=== PATIENT | male | born 1970 | race Caucasian/White ===

== ENCOUNTER 2020-07-03 13:59 | Emergency (ER) | payer OTHER, SELFPAY ==
[~2020-07-03] VITALS: Ht 175.3 cm; Wt 86.2 kg
[2020-07-03] MEDS ORDERED: IV NORMAL SALINE 1000 ML BAG IV ONE (14:30)
[2020-07-03 14:48] LABS: BASOPHILS % (AUTO) 0.2 % (0.0-2.0); EOSINOPHILS % (AUTO) 0.1 % (0.0-7.0); HEMATOCRIT 40.8 % (36.7-47.1); HEMOGLOBIN 13.9 g/dL (12.5-16.3); LYMPHOCYTES # (AUTO) 0.7 K/uL (20.0-40.0); LYMPHOCYTES % (AUTO) 12.9 % (20.5-51.5); MEAN CORPUSCULAR HEMOGLOBIN 31.6 uug (23.8-33.4); MEAN CORPUSCULAR HGB CONC 34 g/dL (32.5-36.3); MEAN CORPUSCULAR VOLUME 92.9 fL (73.0-96.2); MONOCYTES # (AUTO) 0.4 K/uL (2.0-10.0); MONOCYTES % (AUTO) 7.6 % (0.0-11.0); NEUTROPHILS # (AUTO) 4.3 K/uL (1.8-8.9); NEUTROPHILS % (AUTO) 79.2 % (38.5-71.5); PLATELET COUNT (AUTO) 222 K/uL (152-348); RED BLOOD CELL COUNT(AUTO) 4.39 MIL/uL (4.06-5.63); WHITE BLOOD COUNT (AUTO) 5.5 K/uL (3.6-10.2)
[2020-07-03 14:55] LABS: CREATININE 1.2 mg/dL (0.6-1.3); POTASSIUM 3.6 mmol/L (3.5-5.1)
[2020-07-03 15:08] LABS: BILIRUBIN,TOTAL 0.6 mg/dL (0.2-1.0); TOTAL PROTEIN, SERUM 6.6 g/dL (6.4-8.2)
--- NOTE | 2020-07-03 15:43 | NUR ---
PT IS IN ROOM #2B. DR SPENCE EVALUATED THE PT.
[2020-07-03] MEDS ORDERED: DEXAMETHASONE SOD PHOSPHATE 4 MG INJ IV ONE (15:45)
[2020-07-03] MEDS ORDERED: DEXAMETHASONE SOD PHOSPHATE 10 MG INJ ONE (15:57)
--- NOTE | 2020-07-03 16:55 | NUR ---
PT WAS D/C'd TO HOME AFTER DR SPENCE RE-EVALUATION. D/C INSTRUCTIONS GIVEN TO THE PT.
[2020-07-03 16:56] VITALS: BP 136/71
== END 2020-07-03 16:56 | disposition home or self-care (01) ==
LOC: ER 13:59
DX: U07.1 COVID-19 (principal); R00.0 Tachycardia, unspecified; R51.9 Headache, unspecified; M79.10 Myalgia, unspecified site; R19.7 Diarrhea, unspecified; E78.00 Pure hypercholesterolemia, unspecified
CPT/HCPCS: 36415; 71045; 80053; 83880; 84484; 85025; 85379; 93005; 96361; 96374; 99285; J1100; 70030-TC; A4663; J7030